=== PATIENT | male | born 1970 | race American Indian/Alaskan Native ===

== ENCOUNTER 2017-12-06 20:39 | Emergency (ER) | payer MEDICAID | END 2017-12-06 21:40 | disposition left against medical advice (07) | LOC: ED 20:39 | DX: Z00.8 Encounter for other general examination (principal); Z53.21 Procedure and treatment not carried out due to patient leaving prior to being seen by health care provider ==

== ENCOUNTER 2020-08-25 15:50 | Emergency (ER) | payer MEDICAID ==
--- NOTE | 2020-08-25 16:36 | XRay Report ---
Left shoulder radiograph, 3 views. HISTORY: Pain after injury. COMPARISON: None FINDINGS: No acute fracture or malalignment. Mild left AC osteoarthritis. Soft tissues are unremarkab le. Visualized lungs are clear. IMPRESSION: No acute process. Signer Name: Mookie Briceño MD Signed: 08/25/2020 4:30 PM Workstation Name: [id number]
[2020-08-25 18:22] VITALS: BP 133/93
[2020-08-25] MEDS ORDERED: ACETAMINOPHEN 500 MG TAB PO STA (18:25)
[2020-08-25] MEDS ORDERED: IBUPROFEN 800 MG TAB PO ONE (18:25)
--- NOTE | 2020-08-25 18:26 | Emergency Department Report ---
ED General Adult HPI - General Chief complaint: Extremity Injury, Upper Stated complaint: back and shoulder pains Time Seen by Provider: 08/25/20 17:42 Source: patient Mode of arrival: Ambulatory Limitations: No Limitations - History of Present Illness Initial comments: 50-year-old -[place] male patient with history of diabetes, hypertension, schizophrenia, and PE presents with complaints of left shoulder pain x3 days. Patient states the pain started after he lifted something heavy at work. He rates his pain as a 8/10 in severity and denies trying any OTC medication for alleviation. Pain occurs with movement of the shoulder only per patient. He denies any chest pain, shortness of breath, numbness/tingling/weakness in his arm, or decreased range of motion of the arm. Patient states he believes he dislocated his shoulder - Related Data Home Medications Medication Instructions Recorded Confirmed Last Taken Haloperidol Decanoate [Haldol 100 mg IM QMONTH 11/30/13 09/22/14 Unknown Decanoate] risperiDONE [RisperDAL] 20 mg PO DAILY 11/30/13 09/22/14 09/12/14 1 Previous Rx's Medication Instructions Recorded Last Taken Type ARIPiprazole [Abilify TAB] 20 mg PO DAILY #30 tablet 11/30/13 09/12/14 Rx 1 LORazepam [Ativan] 1 mg PO TID PRN #10 tablet 01/06/14 09/12/14 Rx 1 lisinopriL [Zestril TAB] 20 mg PO QDAY #30 tablet 01/06/14 09/12/14 Rx 1 risperiDONE [RisperDAL] 2 mg PO QDAY #30 tab 01/06/14 09/12/14 Rx 1 Docusate Sodium [Colace] 100 mg PO BID #60 capsule 06/21/14 09/12/14 Rx 1 Sennosides [Senna Laxative] 8.6 mg PO BID PRN #20 tab 06/21/14 09/12/14 Rx 1 Starch 51%(Nf) [Anusol] 1 each NJ Q12H #12 supp.rect 07/09/14 09/12/14 Rx 1 risperiDONE [RisperDAL] 2 mg PO QHS 30 Days tab 07/09/14 09/12/14 Rx 1 Azithromycin [Zithromax TAB] 250 mg PO QDAY #7 tablet 11/16/14 Unknown Rx Mupirocin [Bactroban 2% CREAM] 1 applicatio TP TID #1 cream 11/20/14 Unknown Rx Naproxen 500 mg PO BID PRN #20 tablet 08/25/20 Unknown Rx Allergies Allergy/AdvReac Type Severity Reaction Status Date / Time No Known Allergies Allergy Verified 03/01/15 17:03 ED Review of Systems ROS: Stated complaint: back and shoulder pains Other details as noted in HPI Constitutional: denies: fever, malaise Respiratory: denies: cough, shortness of breath Cardiovascular: denies: chest pain Gastrointestinal: denies: abdominal pain Musculoskeletal: arthralgia. denies: joint swelling Neurological: denies: headache, numbness, paresthesias ED Past Medical Hx - Past Medical History Previous Medical History?: Yes Hx Hypertension: Yes (off meds) Hx Diabetes: Yes Hx Pulmonary Embolism: Yes Hx Headaches / Migraines: Yes Hx Seizures: Yes Hx Psychiatric Treatment: Yes (multiple IP stays in [place]) Additional medical history: schizophrenia, bipolar, anemia, brain injury - Surgical History Past Surgical History?: Yes Additional Surgical History: left eye surgery - Social History Smoking Status: Never Smoker Substance Use Type: None - Medications Home Medications: Home Medications Medication Instructions Recorded Confirmed Last Taken Type ARIPiprazole [Abilify TAB] 20 mg PO DAILY #30 tablet 11/30/13 09/22/14 09/12/14 Rx 1 Haloperidol Decanoate [Haldol 100 mg IM QMONTH 11/30/13 09/22/14 Unknown History Decanoate] risperiDONE [RisperDAL] 20 mg PO DAILY 11/30/13 09/22/14 09/12/14 History 1 LORazepam [Ativan] 1 mg PO TID PRN #10 tablet 01/06/14 09/22/14 09/12/14 Rx 1 lisinopriL [Zestril TAB] 20 mg PO QDAY #30 tablet 01/06/14 09/22/14 09/12/14 Rx 1 risperiDONE [RisperDAL] 2 mg PO QDAY #30 tab 01/06/14 09/22/14 09/12/14 Rx 1 Docusate Sodium [Colace] 100 mg PO BID #60 capsule 06/21/14 09/22/14 09/12/14 Rx 1 Sennosides [Senna Laxative] 8.6 mg PO BID PRN #20 tab 06/21/14 09/22/14 09/12/14 Rx 1 Starch 51%(Nf) [Anusol] 1 each NJ Q12H #12 supp.rect 07/09/14 09/22/14 09/12/14 Rx 1 risperiDONE [RisperDAL] 2 mg PO QHS 30 Days tab 07/09/14 09/22/14 09/12/14 Rx 1 Azithromycin [Zithromax TAB] 250 mg PO QDAY #7 tablet 11/16/14 Unknown Rx Mupirocin [Bactroban 2% CREAM] 1 applicatio TP TID #1 cream 11/20/14 Unknown Rx Naproxen 500 mg PO BID PRN #20 tablet 08/25/20 Unknown Rx ED Physical Exam - General Limitations: No Limitations General appearance: alert, in no apparent distress - Head Head exam: Present: atraumatic, normocephalic - Eye Eye exam: Present: normal appearance - Neck Neck exam: Present: full ROM. Absent: tenderness - Respiratory Respiratory exam: Present: normal lung sounds bilaterally. Absent: respiratory distress - Cardiovascular Cardiovascular Exam: Present: regular rate - Extremities Exam Extremities exam: Present: other (Tenderness to palpation noted to the left scapula without obvious deformity; patient has full range of motion of the left shoulder and normal strength; normal radial and ulnar pulse noted) - Back Exam Back exam: Present: full ROM - Neurological Exam Neurological exam: Present: alert, oriented X3, normal gait - Psychiatric Psychiatric exam: Present: normal affect, normal mood - Skin Skin exam: Present: warm, dry, intact, normal color. Absent: rash ED Course Vital Signs 08/25/20 16:07 Temperature 98.5 F Pulse Rate 85 Respiratory 14 Rate Blood Pressure 133/93 O2 Sat by Pulse 100 Oximetry ED Medical Decision Making - Radiology Data Radiology results: report reviewed Left shoulder radiograph, 3 views. HISTORY: Pain after injury. COMPARISON: None FINDINGS: No acute fracture or malalignment. Mild left AC osteoarthritis. Soft tissues are unremarkable. Visualized lungs are clear. IMPRESSION: No acute process. - Medical Decision Making 50-year-old -[place] male patient with history of diabetes, hypertension, schizophrenia, and PE presents with complaints of left shoulder pain x3 days. Patient states the pain started after he lifted something heavy at work. He rates his pain as a 8/10 in severity and denies trying any OTC medication for alleviation. Pain occurs with movement of the shoulder only per patient. He denies any chest pain, shortness of breath, numbness/tingling/weakness in his arm, or decreased range of motion of the arm. Patient states he believes he dislocated his shoulder X-rays negative for any dislocation or other bony abnormality of the left shoulder. Will treat with NSAIDs and icing. Patient to follow-up with his primary care doctor in 3 days. Strict return precautions discussed in detail with patient who verbalizes understanding. Critical care attestation.: If time is entered above; I have spent that time in minutes in the direct care of this critically ill patient, excluding procedure time. ED Disposition Clinical Impression: Acute pain of left shoulder Disposition: DC- TO HOME OR SELFCARE Is pt being admited?: No Condition: Stable Instructions: Shoulder Pain, Shoulder Sprain Prescriptions: Naproxen 500 mg PO BID PRN #20 tablet PRN Reason: pain Referrals: PRIMARY CARE [Primary Care Provider] - 3-5 Days [facility] [Provider Group] - 3-5 Days Forms: Work/School Release Form(ED)
== END 2020-08-25 18:40 | disposition home or self-care (01) ==
LOC: ED 15:50
DX: M25.512 Pain in left shoulder (principal); I10 Essential (primary) hypertension; K21.9 Gastro-esophageal reflux disease without esophagitis; G43.909 Migraine, unspecified, not intractable, without status migrainosus; Z90.49 Acquired absence of other specified parts of digestive tract; Z98.890 Other specified postprocedural states; Z79.899 Other long term (current) drug therapy
CPT/HCPCS: 99283

== ENCOUNTER 2021-10-01 10:24 | Emergency (ER) | payer MEDICAID ==
[2021-10-01 10:58] VITALS: BP 131/89
== END 2021-10-02 07:39 | disposition left against medical advice (07) ==
LOC: ED 10:24
DX: H53.8 Other visual disturbances (principal); Z53.21 Procedure and treatment not carried out due to patient leaving prior to being seen by health care provider